=== PATIENT | male | born 1955 | race Caucasian/White ===

== ENCOUNTER 2020-06-14 11:24 | Inpatient (IN) ==
[2020-06-14] MEDS ORDERED: ERGOCALCIFEROL 1.25 MG PO SCH (17:15)
[2020-06-14] MEDS: Insulin LISPRO 300 UNITS/3 ML VIAL SQ SCH (20:35)
[2020-06-14] MEDS: carvediloL 25 MG TABLET PO SCH (20:48)
[2020-06-14] MEDS: Acetaminophen 325 MG TABLET PO SCH (20:48)
[2020-06-14] MEDS: Apixaban 5 MG TABLET PO SCH (20:49)
[2020-06-14] MEDS: Melatonin 3 MG TABLET PO SCH (20:49)
[2020-06-15] MEDS: *HR* OxyCODONE Immed Rel 5 MG TABLET PO PRN ×5 (00:28→23:11)
[2020-06-15] MEDS: Melatonin 3 MG TABLET PO SCH ×2 (00:29→20:37)
[2020-06-15 06:02] LABS: Basophils % 0.4 %; Eosinophils % 0.6 %; Hemoglobin 9.5 g/dL (12.9-16.9); Lymphocytes # 0.5 K/mcL (0.6-4.6); Lymphocytes % 6.8 %; Mean Corpuscular HGB Conc 33.9 g/dL (31.6-35.5); Mean Corpuscular Hemoglobin 29.8 pg (28.0-33.3); Mean Corpuscular Volume 87.8 fL (83.0-100.0); Mean Platelet Volume 9.3 fL (9.4-12.4); Monocytes # 0.9 K/mcL (0.0-1.3); Monocytes % 12.8 %; Neutrophils # 5.5 K/mcL (1.6-8.9); Platelet Count 281 K/mcL (140-400); Red Blood Count 3.19 M/mcL (4.19-5.50); Red Cell Distribution Width 13.1 % (11.5-14.5); Segmented Neutrophils % 78.4 %
[2020-06-15 07:50] LABS: Calcium 8.1 mg/dL (8.6-10.3); Potassium 4.6 mEq/L (3.5-5.1)
[2020-06-15] MEDS: Cholecalciferol (D-3) 1,000 UNIT (25MCG) TABLET PO SCH (08:35)
[2020-06-15] MEDS: *HR* Amiodarone 200 MG TABLET PO SCH (08:35)
[2020-06-15] MEDS: Acetaminophen 325 MG TABLET PO SCH ×3 (08:36→20:37)
[2020-06-15] MEDS: lisinopriL 20 MG TABLET PO SCH (08:36)
[2020-06-15] MEDS: Apixaban 5 MG TABLET PO SCH ×2 (08:36→20:36)
[2020-06-15] MEDS: carvediloL 25 MG TABLET PO SCH ×2 (08:36→17:51)
[2020-06-15] MEDS: Insulin LISPRO 300 UNITS/3 ML VIAL SQ SCH ×6 (08:40→20:17)
[2020-06-15] MEDS: polyethylene glycoL 3350 17 GM POWD.PACK PO SCH (08:42)
[2020-06-15] MEDS: Sennosides 8.6 MG TABLET PO SCH (08:42)
[2020-06-15] MEDS: Insulin DETEMIR 100 UNIT/ML X5UNITS SQ SCH (08:42)
[2020-06-15 12:24] LABS: Estimated Average Glucose 249 mg/dl
[2020-06-15] MEDS ORDERED: *HR* OxyCODONE Immed Rel 5 MG TABLET PO PRN (13:36)
[2020-06-16] MEDS: *HR* OxyCODONE Immed Rel 5 MG TABLET PO PRN ×4 (03:17→21:57)
[2020-06-16 05:44] LABS: Hematocrit 28.7 % (37.5-50.1); Hemoglobin 9.5 g/dL (12.9-16.9); Mean Corpuscular HGB Conc 33.1 g/dL (31.6-35.5); Mean Corpuscular Hemoglobin 29.6 pg (28.0-33.3); Mean Corpuscular Volume 89.4 fL (83.0-100.0); Mean Platelet Volume 9.1 fL (9.4-12.4); Platelet Count 324 K/mcL (140-400); Red Blood Count 3.21 M/mcL (4.19-5.50); Red Cell Distribution Width 13.4 % (11.5-14.5); White Blood Count 7.1 K/mcL (4.3-11.1)
[2020-06-16 05:58] LABS: Calcium 8.3 mg/dL (8.6-10.3); Magnesium 2.6 mg/dL (1.6-2.6); Potassium 4.7 mEq/L (3.5-5.1)
[2020-06-16] MEDS: Acetaminophen 325 MG TABLET PO SCH ×3 (08:46→20:28)
[2020-06-16] MEDS: carvediloL 25 MG TABLET PO SCH ×2 (08:47→16:18)
[2020-06-16] MEDS: *HR* Amiodarone 200 MG TABLET PO SCH (08:47)
[2020-06-16] MEDS: Cholecalciferol (D-3) 1,000 UNIT (25MCG) TABLET PO SCH (08:47)
[2020-06-16] MEDS: lisinopriL 20 MG TABLET PO SCH (08:47)
[2020-06-16] MEDS: Sennosides 8.6 MG TABLET PO SCH ×2 (08:47→20:27)
[2020-06-16] MEDS: Apixaban 5 MG TABLET PO SCH ×2 (08:47→20:27)
[2020-06-16] MEDS: Insulin LISPRO 300 UNITS/3 ML VIAL SQ SCH ×4 (08:50→20:28)
[2020-06-16] MEDS: polyethylene glycoL 3350 17 GM POWD.PACK PO SCH (08:52)
[2020-06-16] MEDS: Insulin DETEMIR 100 UNIT/ML X5UNITS SQ SCH (09:52)
[2020-06-16] MEDS ORDERED: Simethicone 80 MG TAB.CHEW PO PRN (14:10)
[2020-06-16] MEDS: Melatonin 3 MG TABLET PO SCH (20:27)
[2020-06-16] MEDS ORDERED: Benzonatate 100 MG CAPSULE PO PRN (21:25)
[2020-06-17] MEDS: *HR* OxyCODONE Immed Rel 5 MG TABLET PO PRN ×3 (03:28→12:54)
[2020-06-17] MEDS ORDERED: Bisacodyl 10 MG RECTAL SUPPOSITORY RC SCH (06:00)
[2020-06-17] MEDS: Insulin LISPRO 300 UNITS/3 ML VIAL SQ SCH (08:26)
[2020-06-17] MEDS: Sennosides 8.6 MG TABLET PO SCH ×2 (08:29)
[2020-06-17] MEDS: *HR* Amiodarone 200 MG TABLET PO SCH (08:29)
[2020-06-17] MEDS: Apixaban 5 MG TABLET PO SCH (08:29)
[2020-06-17] MEDS: Acetaminophen 325 MG TABLET PO SCH (08:29)
[2020-06-17] MEDS: lisinopriL 20 MG TABLET PO SCH (08:30)
[2020-06-17] MEDS: polyethylene glycoL 3350 17 GM POWD.PACK PO SCH (08:30)
[2020-06-17] MEDS: carvediloL 25 MG TABLET PO SCH (08:30)
[2020-06-17] MEDS: Cholecalciferol (D-3) 1,000 UNIT (25MCG) TABLET PO SCH (08:30)
[2020-06-17] MEDS: Insulin DETEMIR 100 UNIT/ML X5UNITS SQ SCH (08:36)
[2020-06-17] MEDS ORDERED: Acetaminophen 325 MG TABLET PO PRN (10:44)
[2020-06-17] MEDS ORDERED: Insulin LISPRO 300 UNITS/3 ML VIAL SQ SCH ×2 (10:46)
[2020-06-17] MEDS ORDERED: Gabapentin 100 MG CAPSULE PO SCH (11:00)
[2020-06-17] MEDS ORDERED: Lactulose Oral Soln 20 GM/30 ML UDC PO PRN (11:36)
[2020-06-17 12:40] VITALS: BP 136/61
[2020-06-17] MEDS ORDERED: Insulin DETEMIR 100 UNIT/ML X5UNITS SQ SCH (21:00)
== END 2020-06-17 12:59 | disposition short-term general hospital (02) | DRG 560 ==
LOC: INPGRE 15:16
PROVIDERS: ADMIT Family Medicine; ATTEND Family Medicine